=== PATIENT | male | born 1990 | race African-American/Black ===

== ENCOUNTER 2017-05-12 01:11 | Emergency (ER) | payer OTHER, BC ==
[~2017-05-12] VITALS: Ht 190.5 cm; Wt 144.7 kg
[~2017-05-12 01:11] MED LIST: FLEXERIL10 MG PO; MOTRIN600 MG PO; MOTRIN800 MG PO; NOHOMEMEDS; TRAMADOL HCL50 MG PO; ULTRAM50 MG PO
[2017-05-12] MEDS ORDERED: NAPROSYN500 MG PO (02:03)
[2017-05-12 02:33] VITALS: BP 143/84
== END 2017-05-12 02:44 | disposition home or self-care (01) ==
LOC: EXP 01:11 → EME 01:11 → EXP 02:44
DX: S93.401A Sprain of unspecified ligament of right ankle, initial encounter (principal); S93.601A Unspecified sprain of right foot, initial encounter; W01.0XXA Fall on same level from slipping, tripping and stumbling without subsequent striking against object, initial encounter; Y99.0 Civilian activity done for income or pay; F17.200 Nicotine dependence, unspecified, uncomplicated
CPT/HCPCS: 73610; 73630; 99281; 99283